=== PATIENT | male | born 1980 | race American Indian/Alaskan Native ===

== ENCOUNTER 2017-03-21 17:52 | Emergency (ER) | payer SELFPAY ==
[2017-03-22] MEDS ORDERED: TORADOL IM ONE (01:27)
--- NOTE | 2017-03-22 01:52 | Emergency Department Report ---
ED ENT HPI - General Chief complaint: Headache Stated complaint: HEAD PAIN Time Seen by Provider: 03/22/17 01:36 Source: patient Mode of arrival: Ambulatory Limitations: No Limitations - History of Present Illness Initial comments: This is a 36-year-old male nontoxic, well nourished in appearance, no acute signs of distress presents to the ED complaining of toothache 1 month. Patient describes pain as aching with level of 10 out of 10. Patient stated last month he went to a dentist and was diagnosed with wisdom teeth in the same region and was instructed to have it removed but patient stated due to patient having no income was unable to do it. Patient denies any trauma to the region. Denies stiff neck, facial swelling, numbness, tingling, chest pain, shortness of breath, headache, nausea or vomiting. Denies allergies or past medical history. MD complaint: tooth pain -: Gradual, month(s) (1) Severity: moderate Severity scale (0 -10): 10 Quality: aching Consistency: constant Improves with: none Worsens with: none Context- Dental: history of dental caries Associated Symptoms: gum swelling, toothache. denies: fever, cough, pain with swallowing, sore throat, tinnitus, hearing loss, discharge from ear, rhinorrhea - Related Data Previous Rx's Medication Instructions Recorded Last Taken Type Amoxicillin/K Clav Tab [Augmentin 1 tab PO Q12HR #20 tab 03/22/17 Unknown Rx 875 mg] traMADol [Ultram] 50 mg PO Q6HR PRN #15 tablet 03/22/17 Unknown Rx Allergies Allergy/AdvReac Type Severity Reaction Status Date / Time No Known Allergies Allergy Unverified 03/21/17 17:55 ED Dental HPI - General Chief complaint: Headache Stated complaint: HEAD PAIN Time Seen by Provider: 03/22/17 01:36 Source: patient Mode of arrival: Ambulatory Limitations: No Limitations - Related Data Previous Rx's Medication Instructions Recorded Last Taken Type Amoxicillin/K Clav Tab [Augmentin 1 tab PO Q12HR #20 tab 03/22/17 Unknown Rx 875 mg] traMADol [Ultram] 50 mg PO Q6HR PRN #15 tablet 03/22/17 Unknown Rx Allergies Allergy/AdvReac Type Severity Reaction Status Date / Time No Known Allergies Allergy Unverified 03/21/17 17:55 ED Review of Systems ROS: Stated complaint: HEAD PAIN Other details as noted in HPI Constitutional: denies: chills, fever Eyes: denies: eye pain, eye discharge, vision change ENT: denies: ear pain, throat pain Respiratory: denies: cough, shortness of breath, wheezing Cardiovascular: denies: chest pain, palpitations Endocrine: no symptoms reported Gastrointestinal: denies: abdominal pain, nausea, diarrhea Genitourinary: denies: urgency, dysuria Musculoskeletal: denies: back pain, joint swelling, arthralgia Skin: denies: rash, lesions Neurological: denies: headache, weakness, paresthesias Psychiatric: denies: anxiety, depression Hematological/Lymphatic: denies: easy bleeding, easy bruising ED Past Medical Hx - Past Medical History Previous Medical History?: No - Surgical History Past Surgical History?: No - Social History Smoking Status: Never Smoker Substance Use Type: Alcohol, Non Opiate Pain, Prescribed - Medications Home Medications: Home Medications Medication Instructions Recorded Confirmed Last Taken Type Amoxicillin/K Clav Tab [Augmentin 1 tab PO Q12HR #20 tab 03/22/17 Unknown Rx 875 mg] traMADol [Ultram] 50 mg PO Q6HR PRN #15 tablet 03/22/17 Unknown Rx ED Physical Exam - General Limitations: No Limitations General appearance: alert, in no apparent distress - Head Head exam: Present: atraumatic, normocephalic, normal inspection - Eye Eye exam: Present: normal appearance, PERRL, EOMI. Absent: scleral icterus, conjunctival injection, nystagmus, periorbital swelling, periorbital tenderness Pupils: Present: normal accommodation - ENT ENT exam: Present: normal exam, normal orophraynx, mucous membranes moist, TM's normal bilaterally, normal external ear exam - Expanded ENT Exam Expanded Ear exam: Present: normal external inspection Mouth exam: Present: normal external inspection, tongue normal. Absent: drooling, trismus, muffled voice, tongue elevation, laceration Teeth exam: Present: dental caries, fractured tooth #, dental tenderness #, gingival enlargement, other (Positive molar pain of right lower. No abscess or swelling noted. no facial swelling. ) 1 - Fractured, Dental Tenderness 2 - Dental Tenderness Throat exam: Positive: normal inspection. Negative: tonsillar erythema, tonsillomegaly, tonsillar exudate, R peritonsillar mass, L peritonsillar mass - Neck Neck exam: Present: normal inspection, full ROM. Absent: tenderness, meningismus, lymphadenopathy, thyromegaly - Respiratory Respiratory exam: Present: normal lung sounds bilaterally. Absent: respiratory distress, wheezes, rales, rhonchi, stridor, chest wall tenderness, accessory muscle use, decreased breath sounds, prolonged expiratory - Cardiovascular Cardiovascular Exam: Present: regular rate, normal rhythm, normal heart sounds. Absent: bradycardia, tachycardia, irregular rhythm, systolic murmur, diastolic murmur, rubs, gallop - GI/Abdominal GI/Abdominal exam: Present: soft, normal bowel sounds - Rectal Rectal exam: Present: deferred - Extremities Exam Extremities exam: Present: normal inspection, full ROM, normal capillary refill. Absent: tenderness, pedal edema, joint swelling, calf tenderness - Back Exam Back exam: Present: normal inspection, full ROM. Absent: tenderness, CVA tenderness (R), CVA tenderness (L), muscle spasm, paraspinal tenderness, vertebral tenderness, rash noted - Neurological Exam Neurological exam: Present: alert, oriented X3, CN II-XII intact, normal gait, reflexes normal - Psychiatric Psychiatric exam: Present: normal affect, normal mood - Skin Skin exam: Present: warm, dry, intact, normal color. Absent: rash ED Course Vital Signs 03/21/17 17:55 Temperature 98.5 F Pulse Rate 84 Respiratory 18 Rate Blood Pressure 149/106 O2 Sat by Pulse 100 Oximetry - Reevaluation(s) Reevaluation #1: 03/22/17 02:01 Patient is speaking in full sentences with no distress noted Critical care attestation.: If time is entered above; I have spent that time in minutes in the direct care of this critically ill patient, excluding procedure time. ED Disposition Clinical Impression: Dental caries, Gingivitis History of third molar tooth extraction Qualifiers: Tooth loss class: unspecified tooth loss Qualified Code(s): K08.499 - Partial loss of teeth due to other specified cause, unspecified class Disposition: TO HOME OR SELFCARE Is pt being admited?: No Does the pt Need Aspirin: No Condition: Stable Instructions: Dental Caries (ED), Gingivitis (ED), Amoxicillin/Clavulanate Potassium (By mouth), Tramadol (By mouth) Additional Instructions: Follow-up with a dentist in 24 hours or if symptoms worsen or continue return to emergency room as soon as possible. Use Ultram as prescribed for pain as needed but do not operate any machinery while taking Ultram due to sedation/drowsiness. Prescriptions: Amoxicillin/K Clav Tab [Augmentin 875 mg] 1 tab PO Q12HR #20 tab traMADol [Ultram] 50 mg PO Q6HR PRN #15 tablet PRN Reason: Pain Referrals: PRIMARY CAREMD [Primary Care Provider] - 3-5 Days BRUCE LYON MD [Staff Physician] - 3-[address] [facility] [Outside] - 24 Hours Forms: Work/School Release Form(ED)
[2017-03-22 04:08] VITALS: BP 143/86
== END 2017-03-22 03:05 | disposition home or self-care (01) ==
LOC: ED 17:52
DX: K02.9 Dental caries, unspecified (principal); K05.10 Chronic gingivitis, plaque induced
CPT/HCPCS: 96372; 99282; J1885